=== PATIENT | female | born 1950 | race Caucasian/White ===

== ENCOUNTER 2016-11-25 11:54 | Outpatient (CLI) | payer OTHER | END 2016-11-25 11:55 | disposition home or self-care (01) | DX: Z12.31 Encounter for screening mammogram for malignant neoplasm of breast (principal) ==

== ENCOUNTER 2021-12-03 20:39 | Outpatient (CLI) | payer OTHER ==
--- NOTE | 2021-12-04 00:44 | Ultrasound Report ---
PROCEDURE: Pelvic w/Transvaginal INDICATIONS: POST MENOPAUSAL BLEEDING TECHNIQUE: Real-time scanning was performed of the pelvic organs, with image documentation. Additional endovagi nal scanning was necessary due to incomplete visualization of the adnexal and endometrial structures by transabdominal scanning. COMPARISON: None. FINDINGS: Uterus: Uterus is retroverted and normal in size at 8.2 x 5.1 x 6.3 cm. The endometrium measures 10 .2 mm in combined thickness. The endometrium demonstrates micronodular hyperechogenicity without sig nificant vascularity. The myometrium is heterogeneous secondary to fibroids. There is a submucosal fi broid in the left posterior wall measuring 1.9 cm, subserosal fibroid in the mid fundal region measur ing 1.1 cm, and a right anterolateral pedunculated mass, presumed fibroid measuring 3.1 cm. Ovaries: Neither ovary was well seen. No free pelvic fluid. IMPRESSION: 1. Thickened, and heterogeneously hyperechoic endometrium. Endometrial sampling is recommended. 2. There is a submucosal left-sided fibroid which encroaches on the endometrium and may contribute to bleeding. 3. Neither ovary was well seen. Reviewed by: Marcelina Blevins MD on 12/04/2021 12:46 AM PDT Approved by: Marcelina Blevins MD on 12/04/2021 12:46 AM PDT Station ID: [id number]
== END 2021-12-03 20:40 | disposition home or self-care (01) ==
LOC: DI 20:39
PROVIDERS: ATTEND Obstetrics & Gynecology
DX: R93.89 Abnormal findings on diagnostic imaging of other specified body structures (principal); D25.0 Submucous leiomyoma of uterus

== ENCOUNTER 2022-06-06 15:39 | Outpatient (CLI) | payer OTHER ==
--- NOTE | 2022-06-06 17:16 | XRAY Report ---
PROCEDURE: Foot 3 View RT INDICATIONS: R FOOT PX TECHNIQUE: 3 views of the foot were acquired. COMPARISON: None FINDINGS: Bones: No fractures or dislocations. Mild degenerative changes appreciated. No suspicious bony lesi ons. Soft tissues: No tibiotalar joint effusion. Achilles tendon appears normal. IMPRESSION: No acute osseous abnormality. Reviewed by: Aamir Swain MD on 06/06/2022 4:15 PM LOUANN Approved by: Aamir Swain MD on 06/06/2022 4:15 PM [id number] Station ID: [id number]
== END 2022-06-06 15:40 | disposition home or self-care (01) ==
LOC: DI.N 15:39
PROVIDERS: ATTEND Internal Medicine
DX: M79.671 Pain in right foot (principal)

== ENCOUNTER 2023-09-15 14:37 | Outpatient (CLI) | payer MEDICARE ==
--- NOTE | 2023-09-15 19:43 | XRAY Report ---
PROCEDURE: Knee 3V BL INDICATIONS: BILATERAL KNEE PAIN TECHNIQUE: 3 views of the knee was obtained. COMPARISON: None FINDINGS: Bones: No fractures or dislocations. No suspicious bony lesions. Mild bilateral medial compartment joint space narrowing moderate to severe bilateral patellofemoral lateral facet joint space narrowing . No marginal osteophyte Soft tissues: No knee joint effusion. No suspicious soft tissue calcifications or masses. IMPRESSION: Severe patellofemoral joint space narrowing Reviewed by: Tito Hill MD on 09/15/2023 6:42 PM [place] Approved by: Tito Hill MD on 09/15/2023 6:42 PM [place] Station ID: [id number]
== END 2023-09-15 14:38 | disposition home or self-care (01) ==
LOC: DI 14:37
PROVIDERS: ATTEND Internal Medicine
DX: M25.561 Pain in right knee (principal); M25.562 Pain in left knee